=== PATIENT | female | born 1945 | race Caucasian/White ===

== ENCOUNTER 2021-07-07 05:31 | Inpatient (IN) | payer OTHER ==
[~2021-07-07] VITALS: Ht 162.6 cm; Wt 96.6 kg
--- NOTE | ~2021-07-07 | CON ---
[address] [address] CONSULTATION Name: ADELE ALEGRIA Room: [place] [address] ADM IN M.R.#: [id number] Admission: 07/07/21 Attend Phys: Clair Rosa MD Discharge: Date of : 43 Report #: [id number] THIS REPORT FOR: cc: ZAHEER - No family physician/PCP FAM - No family physician/PCP Ryan Hendrix MD ~ DATE OF CONSULTATION: 07/08/2021 HISTORY OF PRESENT ILLNESS: A 76-year-old female patient was evaluated by me for falls. The patient is a poor historian. I reviewed the records of this patient. This patient came to Emergency Room yesterday evening with what looks like weakness of few days' duration. As estimated, it was about 3 days before she came in. She described it as generalized weakness. Apparently, she had multiple calls to ambulance because she needed lifting assistance. She says she did not hit her head any time. To other people she said she did hit her head a couple of days ago. She has no headache. Review of systems indicates that she was in isolation because there is some question that this patient had COVID or at least she has worked up for that. She has a history of hypertension, she is being followed by Pulmonology. She denies any prior history of stroke. She had a chest CT, which demonstrated multiple patchy infiltration. It looks like Teleneurology was consulted yesterday for the stroke symptoms. Nurse's note indicate that they were going to fax, but I do not see any note there. Initially, they have called me and I have told them that all the stroke activation need to go to Teleneurology. From their notes it looks like they consulted them, but I cannot find any notes from them to see what they did or what they recommended. REVIEW OF SYSTEMS: A 14-point review of system was carried out. This is all I can get in this patient. She has a possible cavitation. She does have a history of hypertension, but she has not seen a doctor for a long time. PAST MEDICAL HISTORY: Negative for any stroke. FAMILY HISTORY: Unremarkable. SOCIAL HISTORY: She says she does not drink alcohol or smoke. PHYSICAL EXAMINATION: She is alert. She is responsive. She can tell me what month it is. She could not tell me the exact date. Cranial nerve examination shows a question of weakness on the left side. Neuromuscular examination indicate she is weak in all 4 extremities, but it appeared to be somewhat more pronounced on the left side as compared to the right side. I tried to do the position sense and it was somewhat inconsistent. She does have reflexes in the lower extremities. I cannot tell about plantar[place] [address] CONSULTATION Name: ADELE ALEGRIA Room: [place] [address] ADM IN M.R.#: [id number] Admission: 07/07/21 Attend Phys: Clair Rosa MD Discharge: Date of : 43 Report #: [id number] unremarkable. She does have some respiratory difficulty. She is morbidly obese. No thyroid mass, no carotid bruit. Blood pressure is 184/69, respirations 17, pulse is 57, temperature is 97.7. LABORATORY DATA: White count is 6.3. GFR was 36. She did have a CT scan. Renal function appears to be doing okay. She did not have a CT angio. IMPRESSION AND PLAN: This patient appeared to have a stroke, which was probably 3 days old. People with stroke in the right cerebral hemisphere tend to get left-sided deficit, which they ignore and they tend to fall down. It is quite likely that the patient has some additional etiology also, which may be in the spine or some other place because she had generalized weakness. I discussed with the patient and as an initial test I am going to get a CT of the C-spine and thoracic spine. I am going to go ahead and start the patient on loading dose of Plavix. We are going to do some more workup like T4, TSH, sed rate and CPK on this patient. We will see how she does with physical therapy and further workup will depend upon the outcome of these testing. Thank you very much for this referral. By: 1312 1721Pdavid Hendrix MD /shiv
[2021-07-07 05:34] VITALS: BP 187/86
[2021-07-07 06:21] LABS: ABSOLUTE BASOPHILS 0.1 thou/uL (0.0-0.2); ABSOLUTE EOSINOPHILS 0.1 thou/uL (0.0-0.7); ABSOLUTE LYMPHOCYTES 1.2 thou/uL (0.8-5.3); ABSOLUTE MONOCYTES 0.5 thou/uL (0.0-1.2); ABSOLUTE NEUTROPHILS 6.5 thou/uL (1.6-8.1); BASOPHILS 0.6 %; EOSINOPHILS 1.5 %; HEMATOCRIT 39.5 % (37.0-47.0); LYMPHOCYTES 14.7 %; MCH 29.5 pg (26.0-34.0); MCV 89.4 fL (80.0-100.0); MONOCYTES 6.1 %; MPV 8.7 fl. (7.2-11.1); NUCLEATED RBCS 0 /100WBC; PLATELET COUNT* 250 thou/uL (150-400); POLYS 77.1 %; RBC 4.42 mil/uL (4.20-5.00); RDW-CV 13.8 % (10.5-14.5); WBC 8.5 thou/uL (4.0-11.0)
[2021-07-07 07:21] LABS: URINE BILIRUBIN NEGATIVE (Negative); URINE BLOOD 3+ (Negative); URINE CLARITY CLEAR; URINE COLOR YELLOW; URINE GLUCOSE-RANDOM NEGATIVE (Negative); URINE KETONES 1+ (Negative); URINE LEUKOCYTES-REFLEX NEGATIVE (Negative); URINE NITRITE-REFLEX NEGATIVE (Negative); URINE PROTEIN NEGATIVE (Negative); URINE SPECIFIC GRAVITY >= 1.030 (1.005-1.030); URINE UROBILINOGEN 0.2 E.U./dl (0.2-1.0)
[2021-07-07 07:31] LABS: CALCIUM 8.9 mg/dL (8.5-10.1); CREATININE 1.5 mg/dL (0.6-1.3)
[2021-07-07 07:42] LABS: BACTERIA-REFLEX 1-9 Few /HPF (None Seen); CASTS None Seen /LPF (None Seen); CRYSTALS None Seen /LPF (None Seen); SQUAMOUS 4-10 Moderate /LPF (0-3); URINE WBC-REFLEX 0-5 Rare /HPF (0-5)
[2021-07-07 07:50] LABS: ALBUMIN 3.6 g/dL (3.4-5.0); MAGNESIUM 1.9 mg/dL (1.8-2.4); TOTAL BILIRUBIN 0.7 mg/dL (<0.1-1.0); TOTAL PROTEIN 7.2 g/dL (6.4-8.2)
[2021-07-07 09:15] VITALS: BP 157/63
[2021-07-07 09:30] VITALS: BP 168/78
[2021-07-07 12:00] VITALS: BP 155/45
--- NOTE | 2021-07-07 12:59 | EKG ---
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
[2021-07-07 16:00] VITALS: BP 173/50
[2021-07-08 02:12] VITALS: BP 174/64
[2021-07-08 04:48] LABS: ABSOLUTE EOSINOPHILS 0.2 thou/uL (0.0-0.7); ABSOLUTE LYMPHOCYTES 1.4 thou/uL (0.8-5.3); ABSOLUTE MONOCYTES 0.3 thou/uL (0.0-1.2); ABSOLUTE NEUTROPHILS 4.3 thou/uL (1.6-8.1); BASOPHILS 0.7 %; EOSINOPHILS 3.4 %; HEMATOCRIT 35.7 % (37.0-47.0); HEMOGLOBIN 11.7 gm/dL (12.0-15.0); LYMPHOCYTES 21.8 %; MCH 29.8 pg (26.0-34.0); MCHC 32.9 g/dL (28.0-37.0); MCV 90.6 fL (80.0-100.0); MONOCYTES 5.5 %; MPV 9.1 fl. (7.2-11.1); NUCLEATED RBCS 0 /100WBC; PLATELET COUNT* 207 thou/uL (150-400); POLYS 68.6 %; RBC 3.94 mil/uL (4.20-5.00); RDW-CV 13.9 % (10.5-14.5); WBC 6.3 thou/uL (4.0-11.0)
[2021-07-08 04:59] LABS: CALCIUM 8.1 mg/dL (8.5-10.1); CREATININE 1.4 mg/dL (0.6-1.3)
[2021-07-08 06:15] VITALS: BP 128/76
[2021-07-08 07:53] VITALS: BP 181/78
[2021-07-08 12:00] VITALS: BP 184/69
[2021-07-08 13:30] LABS: ALBUMIN 2.9 g/dL (3.4-5.0); CALCIUM 8.5 mg/dL (8.5-10.1); CREATININE 1.3 mg/dL (0.6-1.3); POTASSIUM 4.6 mmol/L (3.5-5.1); TOTAL BILIRUBIN 0.5 mg/dL (<0.1-1.0); TOTAL PROTEIN 6.3 g/dL (6.4-8.2)
[2021-07-08 16:00] VITALS: BP 189/78
[2021-07-08 20:00] VITALS: BP 180/60
[2021-07-09] VITALS: BP 170/82
[2021-07-09 03:06] LABS: GLYCOHEMOGLOBIN (HGB A1C) 6.2 % (4.8-5.6)
[2021-07-09 04:23] LABS: CHOLESTEROL 180 mg/dL (<200); HDL CHOLESTEROL 45 mg/dL (>40); LDL CHOLESTEROL 111 mg/dL (<100); TRIGLYCERIDE 120 mg/dL (<150); VLDL 24 mg/dL (<40)
[2021-07-09 04:25] LABS: SERUM ASSESSMENT CLEAR
[2021-07-09 04:43] VITALS: BP 180/76
[2021-07-09 08:00] VITALS: BP 136/74
--- NOTE | 2021-07-09 12:40 | 2DMMODE ---
[place] [address] 2 D/M-MODE ECHOCARDIOGRAM Name: ADELE ALEGRIA Room: [place] [address] ADM IN [facility]#: [id number] Admission: 07/07/21 Attend Phys: Clair Rosa, Discharge: Date of : 43 Date of Service: 07/09/21 1239 Report #: [id number] THIS REPORT FOR: cc: FAM - No family physician/PCP FAM - No family physician/PCP Ken Ugarte MD [facility] ~ APPROVED REPORT Study performed: 07/09/2021 09:33:26 EXAM: Comprehensive 2D, Doppler, and color-flow Echocardiogram Patient Location: In-Patient Room #: [facility] Status: routine BSA: 2.01 HR: 62 bpm BP: 180/76 mmHg Rhythm: NSR Other Information Study Quality: Good Indications CVA/TIA Echo Enhancing Agent Indication: Rule out Shunt Agent(s) / Amount(s) Used: Agitated Saline 10 cc 2D Dimensions IVSd: 14.24 (7-11mm) LVOT Diam: 19.16 (18-24mm) LVDd: 39.79 mm PWd: 12.69 (7-11mm) Ascending Ao: 32.06 (22-36mm) LVDs: 22.44 (25-40mm) Aortic Root: 28.85 mm Volumes Left Atrial Volume (Systole) LA ESV Index: 22.60 mL/m2 Aortic Valve AoV Peak Gonzalo.: 1.61 m/s AO Peak Gr.: 10.41 mmHg LVOT Max P.39 mmHg AO Mean Gr.: 5.18 mmHg LVOT Mean P.28 [place] [address] 2 D/M-MODE ECHOCARDIOGRAM Name: ADELE ALEGRIA Room: [address] IN .R.#: [id number] Admission: 07/07/21 Attend Phys: Clair Rosa, Discharge: Date of : 43 Date of Service: 07/09/21 1239 Report #: [id number] LVOT Max V: 1.16 m/s AO V2 VTI: 34.98 cm LVOT Mean V: 0.68 m/s RANI (VTI): 2.27 cm2 LVOT V1 VTI: 27.52 cm Mitral Valve E/A Ratio: 1.18 MV Decel. Time: 185.96 ms MV E Max Gonzalo.: 1.21 m/s MV PHT: 53.93 ms MVA (PHT): 4.08 cm2 TDI E/Lateral E': 11.00 E/Medial E': 17.29 Medial E' Gonzalo.: 0.07 m/s Lateral E' Gonzalo.: 0.11 m/s Pulmonary Valve PV Peak Gonzalo.: 1.09 m/s PV Peak Gr.: 4.73 mmHg Tricuspid Valve RAP Estimate: 5.00 mmHg TR Peak Gr.: 28.92 mmHg RVSP: 33.00 mmHg PA Pressure: 33.00 mmHg Left Ventricle The left ventricle is normal size. There is normal LV segmental wall motion. Mild concentric left ventricular hypertrophy. Left ventricular systolic function is normal. The left ventricular ejection fraction is within the normal range. LVEF is 60-65%. The left ventricular diastolic function is normal. Right Ventricle The right ventricle is normal size. The right ventricular systolic function is normal. Atria The left atrium size is normal. The interatrial septum is intact with no evidence for an atrial septal defect. The right atrium size is normal. Aortic Valve Mild aortic valve sclerosis. No aortic regurgitation is present. There is no aortic valvular stenosis. Mitral Valve The mitral valve is normal in structure. [place] [address] 2 D/M-MODE ECHOCARDIOGRAM Name: ADELE ALEGRIA Room: [address] IN [facility].#: [id number] Admission: 07/07/21 Attend Phys: Clair Rosa, Discharge: Date of : 43 Date of Service: 07/09/21 1239 Report #: [id number] No evidence of mitral valve stenosis. Tricuspid Valve The tricuspid valve is normal in structure. Trace tricuspid regurgitation. estimated pa pressure 35 mm Hg Pulmonic Valve The pulmonary valve is normal in structure. There is no pulmonic valvular regurgitation. Great Vessels The aortic root is normal in size. IVC is normal in size and collapses >50% with inspiration. Pericardium There is no pericardial effusion. <Conclusion> Mild concentric left ventricular hypertrophy. LVEF is 60-65%. Mild mitral regurgitation. The interatrial septum is intact with no evidence for an atrial septal defect. <ELECTRONICALLY SIGNED> By: Ken Ugarte MD, FACC 07/09/21 1239 1239 1239 Ken Ugarte MD, FACC /INF
[2021-07-09 13:43] LABS: ABSOLUTE BASOPHILS 0.1 thou/uL (0.0-0.2); ABSOLUTE EOSINOPHILS 0.2 thou/uL (0.0-0.7); ABSOLUTE LYMPHOCYTES 1.3 thou/uL (0.8-5.3); ABSOLUTE MONOCYTES 0.3 thou/uL (0.0-1.2); ABSOLUTE NEUTROPHILS 4.4 thou/uL (1.6-8.1); BASOPHILS 1.3 %; HEMATOCRIT 37.9 % (37.0-47.0); HEMOGLOBIN 12.4 gm/dL (12.0-15.0); LYMPHOCYTES 20.4 %; MCHC 32.8 g/dL (28.0-37.0); MCV 91.4 fL (80.0-100.0); MONOCYTES 5.2 %; NUCLEATED RBCS 0 /100WBC; PLATELET COUNT* 208 thou/uL (150-400); POLYS 70.1 %; RBC 4.15 mil/uL (4.20-5.00); RDW-CV 14.3 % (10.5-14.5); WBC 6.3 thou/uL (4.0-11.0)
[2021-07-09 13:52] LABS: ALBUMIN 3.2 g/dL (3.4-5.0); CALCIUM 8.5 mg/dL (8.5-10.1); CREATININE 1.4 mg/dL (0.6-1.3); POTASSIUM 4.3 mmol/L (3.5-5.1); TOTAL BILIRUBIN 0.6 mg/dL (<0.1-1.0); TOTAL PROTEIN 6.4 g/dL (6.4-8.2)
[2021-07-09 14:00] VITALS: BP 206/76
[2021-07-09 16:00] VITALS: BP 190/69
[2021-07-09 20:00] VITALS: BP 180/90
[2021-07-10 00:33] VITALS: BP 191/59
[2021-07-10 04:00] VITALS: BP 152/69
[2021-07-10 09:33] VITALS: BP 177/88
[2021-07-10 11:56] VITALS: BP 163/62
[2021-07-10 16:05] VITALS: BP 166/62
[2021-07-10 17:06] LABS: ANA INTERPRETATION Negative (())
[2021-07-10 20:17] VITALS: BP 188/84
[2021-07-11] VITALS: BP 170/78
[2021-07-11 04:00] VITALS: BP 160/71
[2021-07-11 06:03] LABS: CALCIUM 8.8 mg/dL (8.5-10.1); CREATININE 1.5 mg/dL (0.6-1.3); MAGNESIUM 2.1 mg/dL (1.8-2.4); POTASSIUM 4.1 mmol/L (3.5-5.1)
[2021-07-11 16:00] VITALS: BP 138/63
[2021-07-11 20:17] VITALS: BP 193/64
[2021-07-12] VITALS: BP 168/53
[2021-07-12 04:00] VITALS: BP 159/63
[2021-07-12 04:03] LABS: ABSOLUTE BASOPHILS 0.1 thou/uL (0.0-0.2); ABSOLUTE EOSINOPHILS 0.3 thou/uL (0.0-0.7); ABSOLUTE LYMPHOCYTES 1.5 thou/uL (0.8-5.3); ABSOLUTE MONOCYTES 0.5 thou/uL (0.0-1.2); ABSOLUTE NEUTROPHILS 4.6 thou/uL (1.6-8.1); BASOPHILS 1.2 %; EOSINOPHILS 3.6 %; HEMATOCRIT 36.8 % (37.0-47.0); HEMOGLOBIN 12.3 gm/dL (12.0-15.0); LYMPHOCYTES 22.2 %; MCH 29.8 pg (26.0-34.0); MCHC 33.4 g/dL (28.0-37.0); MCV 89.1 fL (80.0-100.0); MONOCYTES 6.5 %; MPV 8.4 fl. (7.2-11.1); NUCLEATED RBCS 0 /100WBC; PLATELET COUNT* 240 thou/uL (150-400); POLYS 66.5 %; RBC 4.13 mil/uL (4.20-5.00); RDW-CV 14.3 % (10.5-14.5)
[2021-07-12 12:00] VITALS: BP 155/67
[2021-07-12] MEDS ORDERED: ADULT LOW DOSE81 MG PO (12:49)
[2021-07-12] MEDS ORDERED: LIPITOR40 MG PO (12:49)
[2021-07-12] MEDS ORDERED: LEVOFLOXACIN500 MG PO (12:49)
[2021-07-12] MEDS ORDERED: COZAAR 50 MG TA50 M1 PO (12:49)
[2021-07-12] MEDS ORDERED: NEXIUM40 MG PO (12:49)
--- NOTE | 2021-07-13 08:20 | CON ---
[address] [address] CONSULTATION Name: ADELE ALEGRIA Room: [address] IN M.Som.#: [id number] Admission: 07/07/21 Attend Phys: Clair Rosa MD Discharge: 07/12/21 Date of : 43 Report #: [id number] THIS REPORT FOR: cc: FAM - No family physician/PCP FAM - No family physician/PCP Ken Ugarte MD [facility] ~ DATE OF CONSULTATION: 07/11/2021 CARDIOLOGY CONSULTATION HISTORY OF PRESENT ILLNESS: The patient is a 76-year-old single white female who I was asked to see in the hospital today after she had a stroke. The history is obtained from the patient. She has never been here to [facility] before. The patient has had no chronic medical conditions and has not been hospitalized for years. She does not see a doctor on a regular basis. She apparently was admitted to [facility] 4 days ago. She complained of feeling weak and has fallen. She actually slid out of bed and fell to the ground. She could not stand up. She called paramedics and was brought here to [facility] for further evaluation and treatment. She was seen by Neurology and was felt to have a stroke. She denies a history of chest pain, shortness of breath, palpitations, edema or syncope. PAST MEDICAL HISTORY: She has had no surgical history. She has no previous history of hypertension, diabetes, hyperlipidemia. MEDICATIONS: She is on no medications. ALLERGIES: SHE HAS A PREVIOUS INTOLERANCE TO PENICILLIN. FAMILY HISTORY: Positive for diabetes. SOCIAL HISTORY: She is single, never been and lives with a friend in [place], [place]. No smoking or alcohol abuse. REVIEW OF SYSTEMS: She is overweight being 5 feet 4 inches, 160 pounds. No history of previous stroke, asthma, liver disease, kidney disease, cancer, psychiatric illness or chronic skin condition. PHYSICAL EXAMINATION: GENERAL: Revealed an obese elderly female lying in bed. She appeared in no distress. VITAL SIGNS: She had a blood pressure of 160/80, pulse 60. She is afebrile. HEENT: She was anicteric. Conjunctivae pink. Mucous membranes moist. NECK: Veins do not distended. CHEST: [place] [address] CONSULTATION Name: ADELE ALEGRIA Room: [address]#: [id number] Admission: 07/07/21 Attend Phys: Clair Rosa MD Discharge: 07/12/21 Date of : 43 Report #: [id number] HEART: Regular rate and rhythm. No murmur. ABDOMEN: Obese. EXTREMITIES: Had no pitting edema. SKIN: Cool and dry. NEUROLOGIC: She had weakness of the right arm and right leg. Her ECG on admission showed a sinus rhythm with no ST and T-wave changes. On the monitor since she was admitted, she has remained in sinus rhythm with no significant ectopy. Workup after her admission included an echocardiogram that showed ejection fraction 60%, no evidence of shunt. There was left ventricular hypertrophy. X-RAYS: She had a portable chest x-ray on admission that showed a cavitary lung mass, left upper lobe, possible malignancy. She had a CT scan of the chest that showed atelectasis, scarring, small nodule, hyperinflated lung gregory consistent with COPD. Carotid Doppler study showed 50%-69% stenosis. She actually had an MRA of the head that showed evidence of previous subacute infarction. LABORATORY DATA: Creatinine 1.5, albumin 3.2. High sensitivity troponin 25. BNP 520. Cholesterol 180, triglycerides 120, HDL 45, LDL 111. TSH 1.6. Hemoglobin A1c was 6.2. Hemoglobin 12.4. COVID antigen stat test was negative. Urinalysis negative for protein. IMPRESSION AND RECOMMENDATIONS: 1. Hypertension. Recommend starting medication. 2. Stroke. Recommend 30-day residential monitor to rule out atrial fibrillation. The patient followed by Neurology. 3. Obesity. 4. Diabetes. 5. Hyperlipidemia. Recommend a statin drug. 6. Carotid stenosis. Recommend followup Doppler in 6 months. <ELECTRONICALLY SIGNED> By: Ken Ugarte MD, FACC 07/13/21 0820 1151 1435Dakatie Ugarte MD, FACC /nt
[2021-07-13 14:08] LABS: MYCOPLASMA PNEUMONIA IgG 107 U/mL (0-99); MYCOPLASMA PNEUMONIA IgM <770 U/mL (0-769)
== END 2021-07-12 16:45 | DRG 64 ==
LOC: M.ERS 05:31 → M.TBA-ER 06:42 → M.2W 06:42
PROVIDERS: Emergency Medicine; Internal Medicine; Internal Medicine Critical Care Medicine; Nurse Practitioner Family; Psychiatry & Neurology Neuromuscular Medicine; ADMIT Internal Medicine; ATTEND Internal Medicine
PROC: 05HC33Z Insertion of Infusion Device into Left Basilic Vein, Percutaneous Approach (ICD-10-PCS; principal; 2021-07-10)
DX: I63.9 Cerebral infarction, unspecified (principal); J18.9 Pneumonia, unspecified organism; N30.00 Acute cystitis without hematuria; E11.9 Type 2 diabetes mellitus without complications; E78.5 Hyperlipidemia, unspecified; I65.22 Occlusion and stenosis of left carotid artery; I10 Essential (primary) hypertension; I48.91 Unspecified atrial fibrillation; R53.81 Other malaise; R26.9 Unspecified abnormalities of gait and mobility; G47.33 Obstructive sleep apnea (adult) (pediatric); R91.8 Other nonspecific abnormal finding of lung field; E66.9 Obesity, unspecified; I95.9 Hypotension, unspecified; R29.6 Repeated falls; Z20.822 Contact with and (suspected) exposure to COVID-19; Z91.81 History of falling; Z88.0 Allergy status to penicillin; Z68.36 Body mass index [BMI] 36.0-36.9, adult; Z83.3 Family history of diabetes mellitus; Z79.899 Other long term (current) drug therapy; Z79.82 Long term (current) use of aspirin